=== PATIENT | male | born 1960 | race Caucasian/White ===

== ENCOUNTER 2024-01-08 00:03 | Day surgery (SDC) | payer OTHER, SELFPAY ==
[2023-12-20 15:33] VITALS: BMI 29.9
[2024-01-08 06:57] VITALS: BP 146/77; PULSE 66; RESP 18; TEMP 36.2; O2SAT 98; BMI 30.4
[2024-01-08] MEDS: LACTATED RINGERS 1,000 ML 150 ML IV CONT (07:01)
--- NOTE | 2024-01-08 07:42 | PM.HPGS ---
History of Present Illness History of Present Illness Consent: Risks, benefits, and alternatives have been discussed and questions answered. Patient agrees to proceed with procedure. Chief complaint: fam hx colon ca,neoplasm screening Narrative: Toby Murillo is a 63 year old male here for colonoscopy, last one 7 years ago, brother of colon cancer Review of Systems Review of Systems: All systems reviewed & are unremarkable except as noted in HPI and below PMFSH Past Medical History Medical History (Updated 01/08/24 @ 07:43 by Kosta Sheridan MD) Family history of colon cancer Social History Social History Years smoked: 20 Smoking status: Current every day smoker Tobacco type: cigars Alcohol intake: current Living arrangements: with family Spiritual care concerns: No Meds Home Medications and Allergies Home Medications Medication Instructions Recorded Confirmed Type tadalafil 20 mg tablet 20 mg PO DAILY 12/20/23 12/20/23 History Allergies Allergy/AdvReac Type Severity Reaction Status Date / Time No Known Allergies Allergy Verified 01/08/24 06:56 Vital Signs Vital Signs - 24 hr 01/08/24 06:57 Temperature 97.2 F L Pulse Rate 66 Respiratory Rate 18 Blood Pressure 146/77 H Pulse Oximetry 98 Oxygen Delivery Room Air Exam Const: General: comfortable and no acute distress HENMT: Face/Nose/Sinus: Normal nares present Eyes: General: appearance normal, both eyes and all related structures Neck: Neck: no JVD Resp: Auscultation: clear to auscultation bilaterally Cardio: Rate: regular rate Rhythm: regular rhythm GI: Inspection: non-distended GI Palp: Yes Soft to palpation Skin: General skin exam: normal color Neuro: General: gait normal Speech: normal speech Extrem: General: normal to inspection Psych: Mental Status: mental status grossly normal Assessment and Plan Assessment and plan (1) Family history of colon cancer: Code(s): Z80.0 - Family history of malignant neoplasm of digestive organs Status: Acute Assessment and Plan: colonoscopy
--- NOTE | 2024-01-08 07:55 | P.PNAN_ITS ---
Anes - Initial Pre Proc Eval Procedure: Operation Date: 01/08/24 08:00 Proposed Procedures p Colonoscopy - Kosta Sheridan MD Date/Time: 01/08/24 07:55 Surgeon: Kosta Sheridan MD Pre Op Diagnosis: fam hx colon ca,neoplasm screening Patient Data Age: 63 Gender: M Height: 1.83 m Weight: 101.8 kg Last Vital Signs Temp 97.2 F L 01/08/24 06:57 Pulse 66 01/08/24 06:57 Resp 18 01/08/24 06:57 BP 146/77 H 01/08/24 06:57 Pulse Ox 98 01/08/24 06:57 O2 Del Method Room Air 01/08/24 06:57 Allergies Allergy/AdvReac Type Severity Reaction Status Date / Time No Known Allergies Allergy Verified 01/08/24 06:56 Home Medications Medication Instructions Recorded Confirmed Type tadalafil 20 mg tablet 20 mg PO DAILY 12/20/23 12/20/23 History Patient hx anesthesia problems: none Family hx anesthesia problems: none Results Review: All pre-operative results and documents have been reviewed as part of the pre- operative evaluation. [facility] Past Medical History Medical History (Updated 01/08/24 @ 07:43 by Kosta Sheridan MD) Family history of colon cancer Social History Social History Years smoked: 20 Smoking status: Current every day smoker Tobacco type: cigars Alcohol intake: current Living arrangements: with family Spiritual care concerns: No Anes - Eval Final PreProcedure Day of Procedure 01/08/24 07:55 Patient weight: obese Heart: regular rate and rhythm Lungs: clear to auscultation Airway: Mallampati scale class II Neurological: alert and oriented Last oral intake: >/= 8 hours ASA classification: II Emergent: no Anesthetic plan: proceed Anesthesia type and monitoring: general GIVS and standard monitoring Results Review: All pre-operative results and documents have been reviewed as part of the pre- operative evaluation. Informed Consent: The patient's anesthetic plan and its attendant risks and benefits were discussed with the patient/family/POA. Questions were solicited and answers provided to the satisfaction of the patient/family/POA.
[2024-01-08 08:09] VITALS: BP 103/67; PULSE 59; RESP 15; O2SAT 96
[2024-01-08 08:19] VITALS: BP 119/64; PULSE 57; RESP 15; O2SAT 96
[2024-01-08 08:29] VITALS: BP 125/69; PULSE 59; RESP 13; O2SAT 96
== END 2024-01-08 08:36 | disposition home or self-care (01) ==
PROVIDERS: PCP Family Medicine; Visit Provider Internal Medicine Gastroenterology
PROC: 0DJD8ZZ Inspection of Lower Intestinal Tract, Via Natural or Artificial Opening Endoscopic (ICD-10-PCS; CPT 45378; principal; 2024-01-08 08:00)
DX: Z12.11 Encounter for screening for malignant neoplasm of colon (principal); K63.5 Polyp of colon; K57.30 Diverticulosis of large intestine without perforation or abscess without bleeding; K64.8 Other hemorrhoids; Z80.0 Family history of malignant neoplasm of digestive organs; F17.290 Nicotine dependence, other tobacco product, uncomplicated; E66.9 Obesity, unspecified; Z68.30 Body mass index [BMI] 30.0-30.9, adult
CPT/HCPCS: 45385; 88305; J2704; J7120

== ENCOUNTER 2025-01-28 07:45 | Outpatient (CLI) | payer MEDICARE, OTHER, SELFPAY ==
--- OUTSIDE RECORDS SUMMARY | 2025-01-28 07:51 | XMS_ITS | Clinical Summary ---
Author Organization [facility] Address [address] [place] [id number] Care Team Providers Care Department Head [employer] Name Role Phone Baron Fuentes MD Primary Care Provider [phone] Allergies No known active allergies Medications atorvastatin (LIPITOR) 20 mg tablet take 1 tablet by oral route every day 90 3 09/04/19 17 Active Additional Information Patient not taking.Reported on 12/24/2024 cyclobenzaprine (FLEXERIL) 10 mg tabletIndications :Cervical radiculopathy Take 1 tablet (10 mg total) by mouth 3 (three) times a day as needed for muscle spasms 30 tablet 09/17/19 24 Active tadalafiL (CIALIS) 20 mg tablet Take 1 tablet (20 mg total) by mouth daily as needed for erectile dysfunction 36 tablet 1 07/23/20 24 Active ofloxacin (OCUFLOX) 0.3 % ophthalmic solutionIndicatio ns:Acute swimmer's ear of right side Administer 10 drops into the right ear daily for 7 days 5 mL 12/25/19 25 025 amoxicillin-clavu lanate (AUGMENTIN) 875-125 mg per tabletIndications :Non-recurrent acute suppurative otitis media of right ear without spontaneous rupture of tympanic membrane Take 1 tablet by mouth 2 (two) times a day for 7 days 14 tablet 12/25/19 25 025 Active Problems Problem Noted Date Diagnosed Date Obesity (BMI 30.0-34.9) 07/30/2024 BMI 31.0-31.9,adult 07/30/2024 Flu vaccine need 07/30/2024 Encounter for wellness examination 02/14/2022 Assessment & Plan (02/15/2023 8:27 AM CDT): Ordered CBC, cmp, lipid, hgb A1c Colonoscopy referral He has agreed to pcv20. Currently not in stock in our office. Will come back and get this once we have some available. F/u in 1 year for annual Assessment & Plan (02/14/2022 8:36 AM CDT): Ordered CBC, cmp, lipid, hgb a1c, HIV, TSH, and free t4 F/u in 1 year for annual and colonoscopy History of needle biopsy of prostate with negati ve result 02/14/2021 Family hx of colon cancer 11/14/2017 Overview (11/14/2017): Added automatically from request for surgery [id number] Elevated PSA 09/10/2017 Assessment & Plan (02/13/2023 7:06 AM CDT): PSA ordered Recommended following with urology Assessment & Plan (02/14/2022 8:35 AM CDT): PSA ordered Recommended following with urology Mixed hyperlipidemia 09/10/2017 Assessment & Plan (02/13/2023 7:06 AM CDT): Lipid panel ordered today If worsening will have patient take atorvastatin MWF If stable or improved will continue to monitor and continue with exercise and diet Assessment & Plan (02/14/2022 8:35 AM CDT): Lipid panel ordered today If worsening will have patient take atorvastatin MWF If stable or improved will continue to monitor and continue with exercise and diet Resolved Problems Problem Noted Date Diagnosed Date Resolved Date Family history of colon cancer 09/11/2017 01/28/2020 Abnormal prostate specific antigen (PSA) 09/28/2014 01/28/2020 Encounters Date Type Department Care Team Description 12/24/2024 8:30 AM CDT Office Visit [facility] [address] [place] [address] Carole Flores, UNION ORGANISER Bilateral impacted cerumen (Primary Dx); Acute swimmer's ear of right side; Non-recurrent acute suppurative otitis media of right ear without spontaneous rupture of tympanic membrane from Last 3 Months Immunizations Immunization Administration Dates Next Due Influenza, Quadrivalent, Spl it, Preservative Free, Intramuscular 07/23/2023,07/12/2021 Influenza, Trivalent, Preser vative Free, Intramuscular 07/23/2024 Influenza, Unspecified 07/12/2021,2020(Deferred: Patient Refused),05/20/2020(Deferred: Patient Refused),01/27/2020(Deferred: Patient Refused),05/20/2019(Deferred: Patient Refused),11/26/2018(Deferred: Patient Refused) Pfizer SARS-CoV-2 Monovalent Vaccination (12+ Yrs) PURPLE 07/12/2021,11/09/2020,10/19/2020 Pneumococcal Conjugate Pcv20 07/23/2023 Tdap 01/31/2008 ZOSTER LIVE 10/20/2015,05/25/2009 ZOSTER Recombinant 08/23/2021,06/08/2021 Surgical History Surgery Date Site/Laterality Comments COLONOSCOPY 09/06/2010 Medical History Medical History Date Comments Hx Other Medical Lumbar disc dis ease Hx Other Medical basal cell ca r t knee Family History Medical History Relation Name Comments Breast cancer Brother Cancer -breast ; Colon cancer Mother Cancer -colon; Diabetes Neg Hx Diabetes mellit us; Relation Name Status Comments Brother Mother Social History Tobacco Use Types Packs/Day Years Used Date Smoking Tobacco: Heavy Smoker Cigars Smokeless Tobacco: Never Tobacco Cessation:Ready to Q uit: Not Asked; Counseling Given: Not Answered Alcohol Use Standard Drinks/Week Comments Yes 0 (1 standard drink = 0.6 oz pur e alcohol) [facility] Utilities Answer Date Recorded In the past 12 months has e [employer], gas, oil, or water iRule threatened to shut off services in your home? No 07/23/2024 Humiliation, Afraid, Rape, and Kick questionnair e Answer Date Recorded Within the last year, have y ou been afraid of your partner or ex-partner? No 07/23/2024 Within the last year, have y ou been humiliated or emotionally abused in other ways by your partner or ex-partner? No Within the last year, have y ou been kicked, hit, slapped, or otherwise physically hurt by your partner or ex-partner? No 07/23/2024 Within the last year, have y ou been raped or forced to have any kind of sexual activity by your partner or ex-partner? No 07/23/2024 Social Connection and Isolat ion Panel [NHANES] Answer Date Recorded In a typical week, how many times do you talk on the phone with family, friends, or neighbors? More than three times a week 07/23/2024 How often do you get togethe r with friends or relatives? More than three times a week 07/23/2024 How often do you attend chur or baptism services? Never 07/23/2024 Do you belong to any clubs o r organizations such as scientologist groups, unions, fraternal or athletic groups, or school groups? Yes 07/23/2024 How often do you attend meet ings of the clubs or organizations you belong to? Never 07/23/2024 Are you , , di vorced, , never , or living with a partner? 07/23/2024 AUDIT-C Answer Date Recorded Q1: How often do you have a drink containing alc ohol? 2-4 times a month 07/23/2024 Q2: How many drinks containi ng alcohol do you have on a typical day when you are drinking? 1 or 2 07/23/2024 Q3: How often do you have si x or more drinks on one occasion? Never 07/23/2024 Overall Financial Resource Strain (CARDIA) Answe r Date Recorded How hard is it for you to pa y for the very basics like food, housing, medical care, and heating? Not hard at all 07/23/2024 PHQ-2 Answer Date Recorded PHQ-2 Total Score (If total score is 3 or more points, staff should administer the PHQ-9) 0 07/23/2024 [facility] of Occupat ional Health - Occupational Stress Questionnaire Answer Date Recorded Do you feel stress - tense, restless, nervous, or anxious, or unable to sleep at night because your mind is troubled all the time - these days? Only a little 07/23/2024 Exercise Vital Sign Answer Date Recorde d On average, how many days pe r week do you engage in moderate to strenuous exercise (like a brisk walk)? 7 days 07/23/2024 On average, how many minutes do you engage in exercise at this level? 60 min 07/23/2024 Hunger Vital Sign Answer Date Recorded Within the past 12 months, y ou worried that your food would run out before you got the money to buy more. Never true 07/23/20 24 Within the past 12 months, t he food you bought just didn't last and you didn't have money to get more. Never true 07/23/2024 PRAPARE - Transportation Answer Date Re corded In the past 12 months, has l ack of transportation kept you from medical appointments or from getting medications? No 11/2023 In the past 12 months, has l ack of transportation kept you from meetings, work, or from getting things needed for daily living? No 07/23/2024 PHQ-9 Answer Date Recorded PHQ-9 Total Score 0 07/23/2024 Housing Stability Vital Sign Answer Iker e Recorded In the last 12 months, was t here a time when you were not able to pay the mortgage or rent on time? No 07/23/2024 In the past 12 months, how m any times have you moved where you were living? 0 07/23/2024 At any time in the past 12 m [facility], were you homeless or living in a care home (including now)? No 07/23/2024 Sex and Gender Information Value Date Recorded Sex Assigned at Not on file Legal Sex Male 10:01 AM CLINICAL OPERATIONS CONSULTANT Gender Identity Male 02/09/2021 10:22 PM CDT Sexual Orientation Straight 02/09/2021 10 :22 PM CDT Obstetrics History Last Filed Vital Signs Vital Sign Reading Time Taken Comments Blood Pressure 142/82 12/24/2024 8:33 AM CDT Pulse 66 12/24/2024 8:33 AM CDT Temperature 36.8 C (98.2 F) 12/24/2024 8:33 AM CDT Respiratory Rate 20 12/24/2024 8:33 AM CDT Oxygen Saturation 98% 12/24/2024 8:33 AM CDT Inhaled Oxygen Concentration - - Weight 104.8 kg (231 lb) 12/24/2024 8:33 AM CDT Height 180.3 cm (5' 11) 12/24/2024 8:33 AM CDT Body Mass Index 32.22 12/24/2024 8:33 AM CDT Plan of Treatment Health Maintenance Due Date Last Done Comments Hepatitis B Screening 12/01/1977 DTaP/Tdap/Td Vaccine (2 - Td or Tdap) 01/30/2018 01/31/2008 Fall Risk Assessment 02/16/2024 02/15/2023, 02/14/2022, 09/20/2021, Additional history exists Covid-19 Vaccine (2023-09 5 season) 2024 07/05/2022, 07/12/2021, 11/09/2020, Additional history exists Abdominal Aortic Aneurysm (A AA) Screen 12/01/2024 Prostate Cancer Screening-PSA 07/10/2025, 02/22/2022, 09/23/2021, Additional history exists Depression Screening 07/23/2025 07/23/2024, 02/15/2023, 02/14/2022, Additional history exists Well Visit 65+ 07/23/2025 07/23/2024, 01/19, 02/14/2022, Additional history exists Colon Cancer Screening-Colonoscopy 01/07/2029 01/08/2024, 12/20/2017, 09/06/2010, Additional history exists Hepatitis C Screening Completed 12/20/2016 Zoster Vaccine Completed 08/23/2021, 05/21, 10/20/2015, Additional history exists Pneumococcal vaccine 65+ Completed 07/23/2023 Colon Cancer Screening-CT Colonography Discontinued 01/08/2024, 12/20/2017, 09/06/2010, Additional history exists Colon Cancer Screening-DNA Stool Discontinued 01/08/2024, 12/20/2017, 09/06/2010, Additional history exists Colon Cancer Screening-FIT Discontinued 01/07, 12/20/2017, 09/06/2010, Additional history exists Colon Cancer Screening-Sigmoidoscopy Discontinued 01/08/2024, 12/20/2017, 09/06/2010, Additional history exists Influenza Vaccine Completed 07/23/2024, , 07/12/2021, Additional history exists Lung Cancer Screening Discontinued Procedures Procedure Name Priority Date/Time Associated Diagnosis Comments MN REMOVAL IMPACTED CERUMEN INSTRUMENTATION UNILAT Routine 12/24/2024 8:30 AM CDT Bilateral impacted cerumen PSA SCREEN Routine 07/10/2024 8:18 AM CLINICAL OPERATIONS CONSULTANT Encounter for prostate cancer screening COLONOSCOPY REPORT Routine 01/08/2024 HM HEPATITIS C SCREENING Routine 12/20/2016 from Last 3 Months or Most Recently Relevant to Health Maintenance Results * MN REMOVAL IMPACTED CERUMEN INSTRUMENTATION UNILAT (12/24/2024 8:30 AM CDT) Narrative Carole Flores NP - 12/24/2024 8:30 AM CDT Carole Flores NP 12/24/2024 9:57 PM Ear Cerumen Removal Performed by: Carole Flores NP Authorized by: Carole Flores NP Consent Given by: Patient Verbal consent obtained: Yes Location: Bilateral L ear cerumen impacted?: Yes L ear method of removal: Instrumentation and irrigation L ear instrumentation: Curette L ear magnification: Otoscope R ear cerumen impacted?: Yes R ear method of removal: Instrumentation and irrigation R ear instrumentation: Curette R ear magnification: Otoscope Inspection: TM intact Post-procedure hearing quality: Still slightly diminished in the right ear. Patient tolerance: Patient tolerated the procedure well with no immediate complications Carole Flores UNION ORGANISER IN CLINIC/BEDSIDE ORDERABLES F inal Result * (ABNORMAL) PSA screen (07/10/2024 8:18 AM CLINICAL OPERATIONS CONSULTANT) PSA-Total 8.12(H) <=5.40 ng/mL Comment: Interpretive Data AGE SEX REFERENCE INTERVAL 0 minutes-150 years Female None 0 minutes-49 years Male None 50-59 years Male 0-3.90 60-69 years Male 0-5.40 70-79 years Male 0-6.20 80-150 years Male 0-6.20 The Jayne PSA Total assay procedure was used. Results from different manufacturers or methods may not be comparable. Serial testing should be performed using the same method. Current interpretive data last revised 21. Testing performed by: [facility], [address] [place] [address], [place]., [address] Blood 07/10/2024 8:18 AM CLINICAL OPERATIONS CONSULTANT 07/10/2024 12:07 PM CLINICAL OPERATIONS CONSULTANT Baron Fuentes MD LAB BLOOD ORDERABLES Alisia l Result [facility] [place] [address] * Colonoscopy Report -[facility] (01/08/2024) Anatomical Region Laterality Modality Other Historical Provider GI PROCEDURE ORDERABLES F inal Result * HEPATITIS C SCREENING (12/20/2016) HEP C Normal Comment:Negative Historical Provider HEALTH MAINTENANCE Final Result from Last 3 Months or Most Recently Relevant to Health Maintenance Insurance [employer] [facility] [id number] [employer] [facility] [employer] OPEN ACCESS [facility] [address] MEDICARE Advance Directives For more information, please contact: [phone] * Full Code (Latest Code Status on File) Date Activated Date Inactivated Comments 12/20/2017 6:58 AM 12/20/2017 10:43 AM Care Teams Department Head [employer] Relationship Specialty Start Date End Date Baron Fuentes MD [address] [place] [address] PCP - General Family Medicine 07/23/23
--- OUTSIDE RECORDS SUMMARY | 2025-01-28 07:51 | XMS_ITS | Encounter Summary ---
Author Organization [facility] Address [address] [place] [address] Phone Care Team Providers Care Performance Tester Name Role Phone Serjio Berry MD Primary Care Provider [phone] Dorothy Davila MD Primary Care Provide r Baron Fuentes MD Primary Care Provider [phone] Encounter Details Date Type Department Care Team (Late st Contact Info) Description 08/27/2017 Orders Only [facility] ProviderMeme MD [address] [place] [address] Social History Tobacco Use Types Packs/Day Years Used Date Smoking Tobacco: Heavy Smoker Alcohol Use Standard Drinks/Week Comments Yes 0 (1 standard drink = 0.6 oz pur e alcohol) Sex and Gender Information Value Date Recorded Sex Assigned at Not on file Legal Sex Male 10:01 AM NOODLE PRESS OPERATOR Gender Identity Male 02/09/2021 10:22 PM CDT Sexual Orientation Straight 02/09/2021 10 :22 PM CDT documented as of this encounter Plan of Treatment Not on file documented as of this encounter Procedures Procedure Name Priority Date/Time Associated Diagnosis Comments DISCHARGE LABORATORY CUMULATIVE REPORT 08/27/2017 12:00 AM NOODLE PRESS OPERATOR documented in this encounter Results * DISCHARGE LABORATORY CUMULATIVE REPORT (08/27/2017 12:00 AM NOODLE PRESS OPERATOR) Narrative 08/27/2017 12:00 AM NOODLE PRESS OPERATOR Ordered by an unspecified provider. Historical Provider MD LAB BLOOD ORDERABLES Alisia l Result documented in this encounter Visit Diagnoses Not on filedocumented in this encounter Care Teams Performance Tester Relationship Specialty Start Date End Date Serjio Berry MD PCP - General 12/17/07 01/17/22 Dorothy Davila MD [address] [place] [address] DR KHAN [facility] [address] PCP - General Family Medicine 01/18/22 07/22/23 Baron Fuentes MD [address] [place] [address] PCP - General Family Medicine 07/23/23 documented as of this encounter
--- OUTSIDE RECORDS SUMMARY | 2025-01-28 07:52 | XMS_ITS | Referral Summary ---
Author Organization [facility] Address [address] [place] [id number] Care Team Providers Care Auto Clocks Repairer Name Role Phone Baron Fuentes MD Primary Care Provider [phone] Encounters Date Type Department Care Team Description 12/24/2024 8:30 AM CDT Office Visit [facility] [address] [place] [address] Carole Flores NP Bilateral impacted cerumen (Primary Dx); Acute swimmer's ear of right side; Non-recurrent acute suppurative otitis media of right ear without spontaneous rupture of tympanic membrane from Last 3 Months Allergies No known active allergies Medications atorvastatin [...] (11/14/2017): Added automatically from request for surgery [id number] Elevated PSA 09/10/2017 Assessment & Plan (02/13/2023 [...] Abnormal prostate specific antigen (PSA) 09/28/2014 01/28/2020 Immunizations Immunization Administration Dates Next Due Influenza, Quadrivalent, Spl it, Preservative Free, Intramuscular 07/23/2023,07/12/2021 Influenza, Trivalent, Preser vative Free, Intramuscular 07/23/2024 Influenza, Unspecified 07/12/2021,2020(Deferred: Patient Refused),05/20/2020(Deferred: Patient Refused),01/27/2020(Deferred: Patient Refused),05/20/2019(Deferred: Patient Refused),11/26/2018(Deferred: Patient Refused) Pfizer SARS-CoV-2 Monovalent Vaccination (12+ Yrs) PURPLE 07/12/2021,11/09/2020,10/19/2020 Pneumococcal Conjugate Pcv20 07/23/2023 Tdap 01/31/2008 ZOSTER LIVE 10/20/2015,05/25/2009 ZOSTER Recombinant 08/23/2021,06/08/2021 Social History Tobacco Use Types Packs/Day Years Used Date Smoking Tobacco: Heavy Smoker Cigars Smokeless Tobacco: Never Tobacco Cessation:Ready to Q uit: Not Asked; Counseling Given: Not Answered Alcohol Use Standard Drinks/Week Comments Yes 0 (1 standard drink = 0.6 oz pur e alcohol) [facility] [employer] Answer Date Recorded In the past 12 months has e [employer], oil, or water [email or web address] threatened to shut off services in your [...] How often do you attend chur or judaism services? Never 07/23/2024 Do you belong to any clubs o r organizations such as roman catholic groups, unions, fraternal or athletic groups, or [...] staff should administer the PHQ-9) 0 07/23/2024 [facility] - Occupational Stress [...] any time in the past 12 [facility], were you homeless or living in a retirement (including now)? No 07/23/2024 Sex and Gender Information Value Date Recorded Sex Assigned at Not on file Legal Sex Male 10:01 AM COAL YARD SUPERVISOR Gender Identity Male 02/09/2021 10:22 PM CDT Sexual Orientation Straight 02/09/2021 10 :22 PM CDT Last Filed Vital Signs Vital Sign Reading [...] 12/24/2024 8:33 AM CDT Plan of Treatment Not on file Procedures Procedure Name Priority Date/Time Associated Diagnosis Comments TN REMOVAL IMPACTED CERUMEN INSTRUMENTATION UNILAT Routine 12/24/2024 8:30 AM CDT Bilateral impacted cerumen PSA SCREEN Routine 07/10/2024 8:18 AM COAL YARD SUPERVISOR Encounter for prostate cancer screening COLONOSCOPY REPORT Routine 01/08/2024 HM HEPATITIS C SCREENING Routine 12/20/2016 from Last 3 Months or Most Recently Relevant to Health Maintenance Results * TN REMOVAL IMPACTED CERUMEN INSTRUMENTATION UNILAT (12/24/2024 8:30 [...] well with no immediate complications Carole Flores ELECTRIC DEICER INSPECTOR IN CLINIC/BEDSIDE ORDERABLES F inal Result * (ABNORMAL) PSA screen (07/10/2024 8:18 AM COAL YARD SUPERVISOR) PSA-Total 8.12(H) <=5.40 ng/mL Comment: Interpretive Data [...] data last revised 21. Testing performed by: [facility], [address] [place] [address]., [id number] Blood 07/10/2024 8:18 AM COAL YARD SUPERVISOR 07/10/2024 12:07 PM COAL YARD SUPERVISOR Baron Fuentes MD LAB BLOOD ORDERABLES Alisia l Result [facility]) [facility] Department [place] [address] * Colonoscopy Report -[facility] (01/08/2024) Anatomical Region Laterality Modality Other Historical Provider GI PROCEDURE ORDERABLES F inal Result * HEPATITIS C SCREENING (12/20/2016) HEP C Normal Comment:Negative Historical Provider HEALTH MAINTENANCE Final Result from Last 3 Months or Most Recently Relevant to Health Maintenance Insurance [employer] [facility] [id number] [employer] [facility] - Payments [employer] | [employer] Address: [facility] [id number] [place] [address] [employer] OPEN ACCESS - Payments [employer] | [employer] Address: [facility] [id number] [address] [facility] [id number] MEDICARE Advance Directives For more information, please contact: [phone] * Full Code (Latest Code Status on File) Date Activated Date Inactivated Comments 12/20/2017 6:58 AM 12/20/2017 10:43 AM Care Teams Auto Clocks Repairer Relationship Specialty Start Date End Date [place] [address] PCP - General Family Medicine 07/23/23"
== END 2025-01-28 07:46 | disposition home or self-care (01) ==
PROVIDERS: PCP Family Medicine; Visit Provider Otolaryngology
DX: H93.8X3 Other specified disorders of ear, bilateral (principal); H90.3 Sensorineural hearing loss, bilateral; H74.8X1 Other specified disorders of right middle ear and mastoid; H73.93 Unspecified disorder of tympanic membrane, bilateral; H69.93 Unspecified Eustachian tube disorder, bilateral
CPT/HCPCS: 92557; 92567